=== PATIENT | male | born 1985 | race African-American/Black ===

== ENCOUNTER 2024-03-04 11:36 | Outpatient (CLI) | payer SELFPAY | END 2024-03-04 11:37 | disposition home or self-care (01) | PROVIDERS: Visit Provider Nurse Practitioner Family | DX: Z13.220 Encounter for screening for lipoid disorders (principal); Z13.1 Encounter for screening for diabetes mellitus | CPT/HCPCS: 80053; 80061 ==

== ENCOUNTER 2024-03-29 13:45 | Outpatient (RCR) | payer SELFPAY ==
--- NOTE | 2024-03-15 17:04 | PT.OPE ---
PT [facility] [facility] PT [facility] Start: 03/15/24 12:26 Freq: Status: Active Protocol: Document 03/15/24 16:59 CJT (Rec: 03/15/24 17:04 CJT [id number]) E-signed By Wing Hernandes PT Physical Therapy Outpatient Evaluation Insurance Information Recert Due Date 06/13/24 Insurance Name Medicaid,are Medical Diagnosis pain in R hip Treating Diagnosis Low back pain R hip pain Referring Jeanne Keating CERTIFIED PROFESSIONAL CODER Subjective Subjective Pt complains of R posterior buttock pain. Some pain travels up into his back on the R side. Notices increased pain and tightness in hip upon standing. When he plays soccer and kicks across his body with his R leg he also experiences pain in this region. Also notices that when he walks his foot tends to run inward. Pt originally though he had a knee issue a while back and was doing lots of squats to try to help. Has history of R HS injury and wonders if this may have contributed to his symptoms. Pain Comments 05/22 Current Work Status Nurse Emergency Room Occupation residential driver Precautions Therapy Limitations/Systems Review Not Limited Objective Other/Pertinent Objective Lumbar ROM Extension - pain noted in R buttock Flexion - no limitations, reproduces pain in R buttock R/L Side Bend - no limitations R/L Rotation - no limitations *pain with R rotation, pt did shift all of his weight onto R buttock with testing, I do think this is what reproduced his pain with testing R Hip ROM Flexion - 120 IR/ER - 44/25 Extension - 5 L Hip ROM Flexion - 120 IR/ER - 45/14 Extension - 5 R knee ROM - WNL L knee ROM - WNL R Hip Strength Flexion - 4+/5 MMT Abduction - 4+/5 MMT Adduction - 5/5 MMT IR - 5/5 MMT ER - 5/5 MMT Extension - 4/5 MMT L Hip Strength Flexion - 4+/5 MMT Abduction - 4+/5 MMT Adduction - 5/5 MMT IR - 5/5 MMT ER - 5/5 MMT Extension - 4/5 MMT R knee Extension - 5/5 MMT R Knee Flexion - 5/5 MMT L knee Extension - 5/5 MMT L knee Flexion - 5/5 MMT R ankle DF - 5/5 MMT L ankle DF - 5/5 MMT Palpation: pt reports pain/ tenderness with palpation to R piriformis Gait: normal Special Testing Slump: positive R for pain in posterior R hip SLR: negative B FADIR: positive B for SIJ pain LOS: positive L for L SIJ pain, negative R Melany's: positive B Piriformis: positive Hamstring: negative Pelvis: relatively level Leg Length (R/L): 94.0/95.0cm DTRs: unable to elicit B patellar tendons Assessment Assessment/Impression Victoria is a very pleasant 38 year old male who presents to our clinic for evaluation and treatment of R posterior hip pain and low back pain. Pts pain is in the center of his R buttock. Pain is reproduced with direct palpation to his R piriformis muscle. Testing for nerve involvement from the lumbar spine remains inconclusive following today's visit. While it appears that Victoria's pain is coming from his R piriformis muscle, he does note pain of the lateral ankle which is not typical for piriformis pain referral patterns. We will continue to monitor symptoms coming from his lumbar spine moving forward. The nature of the pts condition was explained and all questions were answered to the pts satisfaction. Skilled PT services are medically necessary to address deficits and return patient to highest level of function. Recommend physical therapy sessions 1/ week for 4-6 weeks. Pt agrees with this plan. Printout of HEP was given for I completion and pt gives verbal understanding of each exercise . Primary Functional Limitations Sitting, standing, kicking soccer ball Plan of Care Rehabilitation Potential Excellent Physical Therapy Goals STG - To be completed in 2-3 weeks: 1. Pt will report reduction in R hip pain by factor of 2 so that he may perform sit-to- stands with tolerable level of pain. 2. Pt will report consistent performance of his hip stretches to reduce tissue tension in all planes surrounding B hips. LTG - To be completed in 4-6 weeks: 1. Pt wo be I with HEP so that he may I manage progression of symptoms. 2. Pt will report absence of R hip pain while performing sit -to-stand transfers as indication of reduced tissue tension in R piriformis. Treatment Plan/Direct Interventions Heat,Joint Mobilization,Manual Therapy,Neuromuscular Re-ed, Self-Care/Home Management, Therapeutic Exercises Frequency/Duration 1/week for 4-6 weeks Patient Will Be Discharged From Therapy Completion of LTG(s),Skills Plateau,Independent w/HEP, Independently Progressing Evaluation Billing Untimed Code Treatment Minutes 45 PT Eval No Charge No Complexity Low Certification Information Initial Certification Date 03/15/24 Ending Certification Date 06/13/24 Provider Signature Required Yes Provider Signature Shows Agreement With POC & Medical Necessity Physician NPI Number Write NPI# Here Physician Comment/Change : Physician Signature & Date Requested Please Sign/Date Here
== END 2024-06-18 11:39 | disposition home or self-care (01) ==
PROVIDERS: Visit Provider Nurse Practitioner Family
DX: M25.551 Pain in right hip (principal); Z51.89 Encounter for other specified aftercare
CPT/HCPCS: 97032; 97110; 97140; 97161